=== PATIENT | male | born 1995 | race American Indian/Alaskan Native ===

== ENCOUNTER 2017-03-27 10:21 | Emergency (ER) | payer OTHER ==
[~2017-03-27] VITALS: Ht 175.3 cm; Wt 74.8 kg
[2017-03-27] MEDS ORDERED: TYLE325C PO (10:29)
[2017-03-27] MEDS ORDERED: CLOTRIMAZOLE ANTI12 TOP (11:59)
[2017-03-27] MEDS ORDERED: DIFL150T PO (11:59)
[2017-03-27] MEDS ORDERED: IBUP80TA PO (12:05)
[2017-03-27 12:10] VITALS: BP 119/71
== END 2017-03-27 12:11 | disposition home or self-care (01) ==
LOC: M ED 11:00
DX: B37.9 Candidiasis, unspecified (principal); F17.200 Nicotine dependence, unspecified, uncomplicated